=== PATIENT | male | born 1955 | race Caucasian/White ===

== ENCOUNTER → 2017-08-28 08:44 | Outpatient (CLI) | payer OTHER, SELFPAY ==
--- NOTE | 2017-08-28 08:51 | DI.RAD.S_ITS ---
PROCEDURE: XR SHOULDER LT MIN 2V INDICATIONS: RIGHT AND LEFT SHOULDER PAIN TECHNIQUE: 3 views of the shoulder were acquired. COMPARISON: None. FINDINGS: Bones: No fractures or dislocations but there is moderately severe degenerative osteoarthritis at the glenohumeral joint and moderate such degeneration at the acromioclavicular joint.. No suspicious bony lesions. Visualized ribs appear intact. Soft tissues: No suspicious soft tissue calcifications. IMPRESSION: Degenerative osteoarthritis of the left shoulder overall is moderately severe to severe and most pronounced at the glenohumeral articulation, but also present to lesser degree at the acromioclavicular joint. No trauma. Dictated by: Duncan Parry M.D. on 08/28/2017 at 10:38 Approved by: Duncan Parry M.D. on 08/28/2017 at 10:39
--- NOTE | 2017-08-28 08:51 | DI.RAD.S_ITS ---
PROCEDURE: XR SHOULDER RT MIN 2V INDICATIONS: RIGHT AND LEFT SHOULDER PAIN TECHNIQUE: 3 views of the shoulder were acquired. COMPARISON: [facility], CR, XR SHOULDER LT MIN 2V, 08/28/2017, 8:30. FINDINGS: Bones: No fractures or dislocations. The degenerative osteoarthritis at the glenohumeral joint is moderately severe to severe, and similar at the acromioclavicular joint. There is faint calcification in the subacromial/subdeltoid bursal space seen on the frontal projection above the humeral head. Calcific bursitis is the likely cause. No suspicious bony lesions. Visualized ribs appear intact. Soft tissues: No suspicious soft tissue calcifications. IMPRESSION: Moderately severe to severe degenerative osteoarthritis, involving the glenohumeral joint to a greater degree than the acromioclavicular joint. Calcific bursitis appears present above the humeral head within the subacromial/subdeltoid bursal space. Dictated by: Duncan Parry M.D. on 08/28/2017 at 10:39 Approved by: Duncan Parry M.D. on 08/28/2017 at 10:40
== END ==
PROVIDERS: Family Provider Internal Medicine; PCP Internal Medicine; Visit Provider Internal Medicine
DX: M19.011 Primary osteoarthritis, right shoulder (principal); M19.012 Primary osteoarthritis, left shoulder
CPT/HCPCS: 73030

== ENCOUNTER → 2018-01-01 10:39 | Outpatient (CLI) | payer OTHER, SELFPAY ==
[2018-01-01 11:52] LABS: Alanine Aminotransferase 33 IU/L (21-72); Aspartate Aminotransferase 31 IU/L (17-59); BUN Creatinine Ratio 16.4 (6-22); Blood Urea Nitrogen 18 mg/dL (9-20); Calcium 9.1 mg/dL (8.4-10.2); Carbon Dioxide 28 mmol/L (22-32); Chloride 102 mmol/L (98-107); Cholesterol 156 mg/dL (140-199); Estimated Glomerular Filt Rate > 60.0 mL/min (>60); Glucose 88 mg/dL (80-110); HDL Cholesterol 57 mg/dL (40-60); HEMOLYSIS < 15 (0-50); LDL Cholesterol Calculated 80 mg/dL (<100); Potassium 4.3 mmol/L (3.4-5.1); Sodium 141 mmol/L (137-145); Triglycerides 93 mg/dL (35-150)
[2018-01-01 12:19] LABS: TSH w/ Reflex to FT4 3.95 uIU/mL (0.47-4.68)
== END ==
PROVIDERS: PCP Internal Medicine; Visit Provider Internal Medicine
DX: R03.0 Elevated blood-pressure reading, without diagnosis of hypertension (principal); E78.00 Pure hypercholesterolemia, unspecified
CPT/HCPCS: 36415; 80048; 80061; 84443; 84450; 84460

== ENCOUNTER → 2018-06-04 16:47 | Outpatient (CLI) | payer OTHER, SELFPAY ==
--- NOTE | 2018-06-04 16:52 | DI.RAD.S_ITS ---
PROCEDURE: XR CLAVICLE RT INDICATIONS: fell while skiing-tender and bruising TECHNIQUE: 2 views of the clavicle were acquired. COMPARISON: [facility], CR, XR SHOULDER RT MIN 2V, 08/28/2017, 8:30. [facility], CR, XR SHOULDER RT MIN 2V, 06/04/2018, 16:53. FINDINGS: Bones: Distal right clavicle fracture is noted. Distal fracture fragment is displaced superiorly. Severe right shoulder osteoarthritic degenerative changes are noted. Soft tissues: No suspicious soft tissue calcifications. IMPRESSION: Distal right clavicle fracture. Dictated by: Haven Ceron MD, PhD on 06/04/2018 at 17:26 Approved by: Haven Ceron MD, PhD on 06/04/2018 at 17:27
--- NOTE | 2018-06-04 16:52 | DI.RAD.S_ITS ---
PROCEDURE: XR SHOULDER RT MIN 2V INDICATIONS: fell while skiing-tender and bruising TECHNIQUE: 3 views of the shoulder were acquired. COMPARISON: [facility], CR, XR SHOULDER RT MIN 2V, 08/28/2017, 8:30. FINDINGS: Bones: Distal right clavicle fracture noted. Severe right glenohumeral joint osteoarthritis with large humeral head marginal osteophyte noted. Soft tissues: No suspicious soft tissue calcifications. IMPRESSION: Distal right clavicle fracture. Dictated by: Haven Ceron MD, PhD on 06/04/2018 at 17:27 Approved by: Haven Ceron MD, PhD on 06/04/2018 at 17:27
== END ==
PROVIDERS: Family Provider Internal Medicine; PCP Internal Medicine; Visit Provider Physician Assistant
DX: S42.031A Displaced fracture of lateral end of right clavicle, initial encounter for closed fracture (principal); M25.511 Pain in right shoulder; W00.0XXA Fall on same level due to ice and snow, initial encounter; Y93.23 Activity, snow (alpine) (downhill) skiing, snowboarding, sledding, tobogganing and snow tubing
CPT/HCPCS: 73000; 73030

== ENCOUNTER 2019-08-18 20:22 | Emergency (ER) | payer OTHER, SELFPAY ==
[2019-08-18 20:28] VITALS: BP 166/91; PULSE 55; RESP 16; TEMP 36.5; O2SAT 99; BMI 27.9
--- NOTE | 2019-08-18 20:59 | ED_ITS ---
HPI - Extremity Injury (Upper) General Chief Complaint: Extremity Injury, Upper Stated Complaint: rt 4th finger injury Time Seen by Provider: 08/18/19 20:45 History of Present Illness HPI narrative: 63-year-old gentleman with a history of high blood pressure hypothyroid and high cholesterol presents after catching his 2nd finger on the right side in a boat winch. The fingernail is partly avulsed and he is looking for an opinion on how to best treat this. Other injuries: none Related Data Home Medications Medication Instructions Recorded Confirmed atorvastatin PO 06/04/18 06/04/18 levothyroxine PO 06/04/18 06/04/18 losartan PO 06/04/18 06/04/18 Previous Rx's Medication Instructions Recorded oxycodone-acetaminophen [Percocet] 1 tab PO Q8H PRN #10 tab 08/18/19 Allergies Allergy/AdvReac Type Severity Reaction Status Date / Time No Known Drug Allergies Allergy Verified 06/04/18 17:22 Review of Systems Constitutional Constitutional: Reports system reviewed and no additional complaints, except as docu Patient History Medical History Hyperlipidemia (Acute) Hypertension (Acute) Hypothyroidism (acquired) (Acute) Social History Smoking Status: Never smoker Smoking Status: Never smoker alcohol intake frequency: 0-2 drinks per day Substance Use Type: does not use Exam Narrative Exam Narrative: General: Alert appropriate in no acute distress Respiratory: Able to speak in full sentences, no obvious respiratory distress Neurologic: Grossly intact no obvious asymmetries or abnormalities Psych, appropriate insight and affect, cooperative Upper extremity: Right hand is examined. Second finger has a small laceration just distal to the 1st knuckle that is superficial and does not need any repair. The nail has been completely avulsed from the nail bed but is still attached distally. Patient was able to get about half of the nail under the cuticle flap and recede on the nail bed. Using an 18 gauge needle I was able to gently pressed the other half back into place. Minor amount of bleeding. Neuro vascularly intact Initial Vital Signs Initial Vital Signs: Vital Signs Temperature 97.7 F 08/18/19 20:28 Pulse Rate 55 L 08/18/19 20:28 Respiratory Rate 16 08/18/19 20:28 Blood Pressure 166/91 H 08/18/19 20:28 Pulse Oximetry 99 08/18/19 20:28 Course Orders Ordered: Discontinued Medications Bacitracin (Bacitracin) 5 applic TOP NOW ONE Stop: 08/18/19 20:51 Last Admin: 08/18/19 21:00 Dose: 5 applic Documented by: KASI Vital Signs Vital signs: Vital Signs - 8 hr 08/18/19 20:28 Temperature 97.7 F Pulse Rate 55 L Respiratory Rate 16 Blood Pressure 166/91 H Pulse Oximetry 99 MDM - Extremity Injury (Upper) MDM Narrative Medical decision making narrative: Avulsed base of nail. Able to get it back into the cuticle space and seated nicely. We shared decision making we opted to allow this to act as a biologic Band-Aid as the new nail grows in rather than remove the nail completely. Wounds are dressed and patient is safe for home discharge Discharge Plan Departure Patient Disposition: Home Clinical Impression: Avulsion of nail bed Instructions: DI for Nail Avulsion Injury Activity Restrictions/Additional Instructions: Thank you for coming in today You fairly jacque with this injury. There is no suggestion of a broken bone based on her clinical exam The small cut just by her knuckle will heal nicely without any further intervention You did pop the the closest edge of the nail(the nail bed) out. We were able to pop it back into the nail bed without any difficulty. It will continue to drain nicely. The new nail will grow in underneath and eventually the old nail will fall off. Do keep it covered as it begins to heal will act like a hangnail with things catching on it If he noticed signs or symptoms of infection please feel free to return happy to re-evaluate. Using 400 mg of ibuprofen (2 xvpz-tro-[id number] pills) and 1 Tylenol every 6 hours can be very helpful in controlling pain. For severe pain you can substitute 1 Percocet for the Tylenol. A prescription for this has been electronically transmitted to [facility] in [place] for you. Keeping the hand elevated will help so that it is not throbbing I wish you the best Prescriptions: New oxycodone-acetaminophen [Percocet] 5-325 mg tablet 1 tab PO Q8H PRN (Reason: pain) Qty: 10 RF: 0 No Action atorvastatin PO RF: 0 levothyroxine PO RF: 0 losartan PO RF: 0 Referrals: Hilary Leon MD [Primary Care Provider] -
[2019-08-18] MEDS: BACITRACIN OINT 0.9 GM PCKT 5 APPLIC TOP (21:00)
== END 2019-08-18 21:10 | disposition home or self-care (01) ==
PROVIDERS: Emergency Provider Emergency Medicine; Family Provider Internal Medicine; PCP Internal Medicine
DX: S61.300A Unspecified open wound of right index finger with damage to nail, initial encounter (principal); W23.0XXA Caught, crushed, jammed, or pinched between moving objects, initial encounter
CPT/HCPCS: 99281

== ENCOUNTER → 2019-12-31 09:21 | Outpatient (CLI) | payer OTHER, SELFPAY ==
[2019-12-31 11:03] LABS: Alanine Aminotransferase 40 IU/L (<50); Albumin 4.5 g/dL (3.5-5.0); Albumin Globulin Ratio 1.6 (1.0-2.8); Alkaline Phosphatase 66 U/L (38-126); Aspartate Aminotransferase 31 IU/L (17-59); BUN Creatinine Ratio 14.9 (6-22); Bilirubin Total 0.8 mg/dL (0.2-1.3); Blood Urea Nitrogen 15 mg/dL (9-20); Calcium 9.2 mg/dL (8.4-10.2); Carbon Dioxide 30 mmol/L (22-32); Chloride 103 mmol/L (98-107); Cholesterol 151 mg/dL (140-199); Estimated Glomerular Filt Rate > 60.0 mL/min (>60); Globulin 2.9 g/dL (1.7-4.1); Glucose 89 mg/dL (80-110); HDL Cholesterol 57 mg/dL (40-60); HEMOLYSIS < 15 (0-50); LDL Cholesterol Calculated 72 mg/dL (<100); Potassium 4.8 mmol/L (3.4-5.1); Sodium 141 mmol/L (137-145); Total Protein 7.4 g/dL (6.3-8.2); Triglycerides 109 mg/dL (35-150)
[2019-12-31 11:29] LABS: TSH w/ Reflex to FT4 5.37 uIU/mL (0.47-4.68)
[2019-12-31 11:58] LABS: Free T4, Direct Thyroxine 0.99 ng/dL (0.78-2.19)
[2020-01-01 07:08] LABS: PSA Free % 36.1 % (.); PSA, Total 4.1 ng/mL (0.0-4.0)
== END ==
PROVIDERS: Family Provider Internal Medicine; PCP Internal Medicine; Referring Provider Internal Medicine; Visit Provider Internal Medicine
DX: I10 Essential (primary) hypertension (principal); E78.00 Pure hypercholesterolemia, unspecified; Z00.00 Encounter for general adult medical examination without abnormal findings; E03.9 Hypothyroidism, unspecified
CPT/HCPCS: 36415; 80053; 80061; 84153; 84154; 84439; 84443

== ENCOUNTER → 2020-03-03 12:53 | Outpatient (CLI) | payer OTHER, SELFPAY ==
[2020-03-03 15:39] LABS: TSH w/ Reflex to FT4 0.59 uIU/mL (0.47-4.68)
== END ==
PROVIDERS: Family Provider Internal Medicine; PCP Internal Medicine; Referring Provider Internal Medicine; Visit Provider Internal Medicine
DX: E03.9 Hypothyroidism, unspecified (principal)
CPT/HCPCS: 36415; 84443

== ENCOUNTER 2020-03-07 14:15 | Outpatient (RCR) | payer OTHER, SELFPAY ==
--- NOTE | 2020-02-01 13:30 | PT.OIE ---
Current Diagnoses Benign paroxysmal vertigo, unspecified ear (02/01/20) Past Medical History (Last Reviewed 08/18/19 @ 21:01 by Clover Lyle MD) Hyperlipidemia (Acute) Hypertension (Acute) Hypothyroidism (acquired) (Acute) Visit Care Team Role Provider Type Hilary Leon MD Attending Provider Physician Family Provider Primary Care Provider Referring Provider Specialty: Internal Medicine Address: [address] [place] [address], [facility] Email: [email or web address] Physical Therapy Initial Evaluation PT-OP-A Visit Information Start: 02/01/20 08:28 Freq: Status: Active Protocol: Document 02/01/20 12:45 AMB (Rec: 02/04/20 09:31 AMB [email or web address]) Out-Patient Physical Therapy Visit Information Visit Information Visit Type Initial Evaluation Visit Start Time 12:45 Visit Stop Time 13:30 Total Visit Minutes 45 Visit Number 1 PT-OP-B Current Condition Start: 02/01/20 08:28 Freq: Status: Active Protocol: Document 02/01/20 12:47 AMB (Rec: 02/01/20 13:04 AMB [id number]) Current Condition History of Current Condition Current Complaints dizziness intermittent History of Current Condition Years ago, jumped back up after doing a burpee and then fell over. Last year episodes that come and go. Some concussion history but very distant, maybe a little bit of tinnitis. PT-OP-C Subjective Start: 02/01/20 08:28 Freq: Status: Active Protocol: Document 02/01/20 12:45 AMB (Rec: 02/04/20 09:31 AMB [email or web address]) Patient Questionnaires Dizziness Handicap Inventory DHI Score 12 DHI Functional Impairment 1 to 19% Impaired (Score 1-19) PT-OP-O Vestibular Start: 02/01/20 08:28 Freq: Status: Active Protocol: Document 02/01/20 12:45 AMB (Rec: 02/04/20 09:31 AMB [email or web address]) Vestibular Assessment Visual Testing Smooth Pursuits Horizontal WFL Smooth Pursuits Vertical WFL Saccades Horizontal WFL Saccades Vertical WFL Gaze Evoked Nystagmus With Fixation Negative Gaze Evoked Nystagmus Without Fixation Negative Thrust Head Negative Positional Testing Suzette-Hallpike Negative Left,Negative Right Rolling Test Negative Left,Negative Right Comments Vestibular Comments no nystagmus or sx with any testing PT-OP-T Assessment and Plan Start: 02/01/20 08:28 Freq: Status: Active Protocol: Document 02/01/20 12:45 AMB (Rec: 02/04/20 09:31 AMB [email or web address]) Physical Therapy Assessment Rehab Potential Rehabilitation Potential Fair Evaluation Complexity Number of Personal Factors/Comorbidities 0 Number of Body Systems Impaired 1-2 Clinical Presentation at Evaluation Stable Impairments Impairments Vestibular Goals One Impairment Adam manuever Short Term Goal (STG) Wale will perform a self Adam manuever correctly to reduce his dizziness symptoms. STG Duration 8 weeks Assessment Summary Assessment Wale attends physical therapy with what sounds like BPPV, but with his active lifestyle it has self resolved by the time of his physical therapy appointment, and we could not recreate his symptoms with testing. He was therefore instructed in a home Adam manuever and told to return if his symptoms return. Physical Therapy Plan Frequency and Duration Frequency of Treatment 2x/Week Duration of Treatment 8 weeks Plan of Care Start Date 02/01/20 Plan of Care End Date 03/28/20 Therapeutic Interventions Therapeutic Interventions Canalithic Repositioning,Home Exercise Program,Neuromuscular Re-education,Therapeutic Activities,Therapeutic Exercises Next Visit Focus/Plan Next Note Type Treatment Note Next Visit Plan If pt is symptomatic in next few weeks he will come in, otherwise we will teach him how to perform self Adam for when he becomes symptomatic
--- NOTE | 2020-02-01 13:30 | PT.OPPOC ---
Physical, Occupational & Speech Therapy At [facility] Current Diagnoses Benign paroxysmal vertigo, unspecified ear (02/01/20) Visit Care Team Role Provider Type Hilary Leon MD Attending Provider Physician Family Provider Primary Care Provider Referring Provider Specialty: Internal Medicine Address: [address] [place] [address], [id number] Email: [email or web address] Plan Of Care PT-OP-T Assessment and Plan Start: 02/01/20 08:28 Freq: Status: Active Protocol: Document 02/01/20 12:45 AMB (Rec: 02/04/20 09:31 AMB [email or web address]) Physical Therapy Assessment Rehab Potential Rehabilitation Potential Fair Evaluation Complexity Number of Personal Factors/Comorbidities 0 Number of Body Systems Impaired 1-2 Clinical Presentation at Evaluation Stable Impairments Impairments Vestibular Goals One Impairment Adam manuever Short Term Goal (STG) Wale will perform a self Adam manuever correctly to reduce his dizziness symptoms. STG Duration 8 weeks Assessment Summary Assessment Wale attends physical therapy with what sounds like BPPV, but with his active lifestyle it has self resolved by the time of his physical therapy appointment, and we could not recreate his symptoms with testing. He was therefore instructed in a home Adam manuever and told to return if his symptoms return. Physical Therapy Plan Frequency and Duration Frequency of Treatment 2x/Week Duration of Treatment 8 weeks Plan of Care Start Date 02/01/20 Plan of Care End Date 03/28/20 Therapeutic Interventions Therapeutic Interventions Canalithic Repositioning,Home Exercise Program,Neuromuscular Re-education,Therapeutic Activities,Therapeutic Exercises Next Visit Focus/Plan Next Note Type Treatment Note Next Visit Plan If pt is symptomatic in next few weeks he will come in, otherwise we will teach him how to perform self Adam for when he becomes symptomatic Plan of Care Dates Plan of Care Start Date 02/01/20 Plan of Care End Date 03/28/20 Electronically Signed by: Nori Price, PT 02/04/20 0653 Please Sign and Return: I have reviewed this Plan of Care and certify that the skilled therapy services above are required to meet the patient?s needs. Physician Signature Date Printed Name and Credentials Clinical Instructor Signature Printed Name and Credentials
--- NOTE | 2020-03-07 16:09 | PT.OTN ---
Current Diagnoses Benign paroxysmal vertigo, unspecified ear (03/07/20) Physical Therapy Treatment Note PT-OP-A Visit Information Start: 02/01/20 08:28 Freq: Status: Active Protocol: Document 03/07/20 14:15 AMB (Rec: 03/08/20 16:09 AMB [email or web address]) Out-Patient Physical Therapy Visit Information Visit Information Visit Type Treatment Note Visit Start Time 14:15 Visit Stop Time 15:00 Total Visit Minutes 45 Visit Number 2 PT-OP-B Current Condition Start: 02/01/20 08:28 Freq: Status: Active Protocol: Document 02/01/20 12:47 AMB (Rec: 02/01/20 13:04 AMB [id number]) Current Condition History of Current Condition Current Complaints dizziness intermittent History of Current Condition Years ago, jumped back up after doing a burpee and then fell over. Last year episodes that come and go. Some concussion history but very distant, maybe a little bit of tinnitis. PT-OP-C Subjective Start: 02/01/20 08:28 Freq: Status: Active Protocol: Document 03/07/20 14:15 AMB (Rec: 03/08/20 16:09 AMB [email or web address]) OP-PT Subjective Patient Comments Patient Comments Wale attends feeling like his symptoms have returned. He was doing burpees on Friday and felt like the whole room was spinning. PT-OP-O Vestibular Start: 02/01/20 08:28 Freq: Status: Active Protocol: Document 02/01/20 12:45 AMB (Rec: 02/04/20 09:31 AMB [email or web address]) Vestibular Assessment Visual Testing Smooth Pursuits Horizontal WFL Smooth Pursuits Vertical WFL Saccades Horizontal WFL Saccades Vertical WFL Gaze Evoked Nystagmus With Fixation Negative Gaze Evoked Nystagmus Without Fixation Negative Thrust Head Negative Positional Testing [place]-Hallpike Negative Left,Negative Right Rolling Test Negative Left,Negative Right Comments Vestibular Comments no nystagmus or sx with any testing PT-OP-Q Treatments Start: 02/01/20 08:28 Freq: Status: Active Protocol: Document 03/07/20 14:15 AMB (Rec: 03/08/20 16:09 AMB [email or web address]) Neuro Re-Education Treatment Other Activities 1 Comments supine roll and Suzette-hallpike all negative. Bhat Daroff to the left negative, mildy symptomatic to the right but no visible nystagmus in room light. Normal DVA. PT-OP-T Assessment and Plan Start: 02/01/20 08:28 Freq: Status: Active Protocol: Document 03/07/20 14:15 AMB (Rec: 03/08/20 16:09 AMB [email or web address]) Physical Therapy Assessment Assessment Summary Assessment Pt was not able to reproduce any visible nystagmus, but pt was mildy symptomatic with Bhat Daroff to the right. PT given this as HEP and told to return if sx do not subside or return. Physical Therapy Plan Next Visit Focus/Plan Next Visit Plan Consider concussion hx vs cervicogenic dizziness if pt's sx do not improve
--- NOTE | 2020-04-19 16:00 | PT.OPDS ---
Current Diagnoses Benign paroxysmal vertigo, unspecified ear (03/07/20) Visit Care Team Role Provider Type Hilary Leon MD Attending Provider Physician Family Provider Primary Care Provider Referring Provider Specialty: Internal Medicine Address: [address] [place] [address], [facility] Email: [email or web address] Visit Number Visit Number 2 Discharge Summary PT-OP-B Current Condition Start: 02/01/20 08:28 Freq: Status: Active Protocol: Document 02/01/20 12:47 AMB (Rec: 02/01/20 13:04 AMB [id number]) Current Condition History of Current Condition Current Complaints dizziness intermittent History of Current Condition Years ago, jumped back up after doing a burpee and then fell over. Last year episodes that come and go. Some concussion history but very distant, maybe a little bit of tinnitis. PT-OP-C Subjective Start: 02/01/20 08:28 Freq: Status: Active Protocol: Document 03/07/20 14:15 AMB (Rec: 03/08/20 16:09 AMB [email or web address]) OP-PT Subjective Patient Comments Patient Comments Wale attends feeling like his symptoms have returned. He was doing burpees on Friday and felt like the whole room was spinning. PT-OP-O Vestibular Start: 02/01/20 08:28 Freq: Status: Active Protocol: Document 02/01/20 12:45 AMB (Rec: 02/04/20 09:31 AMB [email or web address]) Vestibular Assessment Visual Testing Smooth Pursuits Horizontal WFL Smooth Pursuits Vertical WFL Saccades Horizontal WFL Saccades Vertical WFL Gaze Evoked Nystagmus With Fixation Negative Gaze Evoked Nystagmus Without Fixation Negative Thrust Head Negative Positional Testing [place]-Hallpike Negative Left,Negative Right Rolling Test Negative Left,Negative Right Comments Vestibular Comments no nystagmus or sx with any testing PT-OP-T Assessment and Plan Start: 02/01/20 08:28 Freq: Status: Active Protocol: Document 04/19/20 15:58 AMB (Rec: 04/19/20 16:00 AMB [email or web address]) Physical Therapy Assessment Assessment Summary Assessment PT was not able to reproduce Wale' sx. If he continues to have sx could consider further PT in the future vs ENT evaluation, but it is difficult due to the sporadic nature of his symptoms. Physical Therapy Plan Discharge Physical Therapy Discharge Reasons No Longer Attending PT
== END 2020-04-26 08:50 ==
LOC: PHYS 14:15
PROVIDERS: Family Provider Internal Medicine; PCP Internal Medicine; Referring Provider Internal Medicine; Visit Provider Internal Medicine
DX: H81.10 Benign paroxysmal vertigo, unspecified ear (principal)
CPT/HCPCS: 97112; 97161

== ENCOUNTER → 2020-05-24 08:36 | Outpatient (CLI) | payer OTHER, SELFPAY ==
[2020-05-24 10:36] LABS: COVID19 -Nasal RAPID Negative (Negative)
== END ==
PROVIDERS: Family Provider Internal Medicine; PCP Internal Medicine; Visit Provider Family Medicine Sleep Medicine
DX: Z20.822 Contact with and (suspected) exposure to COVID-19 (principal); G47.33 Obstructive sleep apnea (adult) (pediatric)
CPT/HCPCS: 87635; 95810

== ENCOUNTER → 2020-06-22 09:00 | Outpatient (CLI) | payer OTHER, SELFPAY ==
[2020-06-22 11:27] LABS: COVID19 -Nasal RAPID Negative (Negative)
== END ==
PROVIDERS: Family Provider Internal Medicine; PCP Internal Medicine; Visit Provider Family Medicine Sleep Medicine
DX: Z20.822 Contact with and (suspected) exposure to COVID-19 (principal); G47.33 Obstructive sleep apnea (adult) (pediatric); G47.19 Other hypersomnia; G47.00 Insomnia, unspecified; Z87.898 Personal history of other specified conditions
CPT/HCPCS: 87635; 95811

== ENCOUNTER → 2021-03-06 07:37 | Outpatient (CLI) | payer OTHER, SELFPAY ==
--- NOTE | 2021-03-06 07:41 | DI.MRI.S_ITS ---
PROCEDURE: MR SHOULDER RT W CON INDICATIONS: Primary osteoarthritis, right shoulder TECHNIQUE: After the administration of 12 mL of dilute intra-articular Gadolinium contrast, oblique coronal T1 and T2 spin echo with fat saturation, oblique sagittal T1 spin echo with and without fat saturation, oblique sagittal T2 fast spin echo with fat saturation, axial T1 spin echo with fat saturation through the shoulder. COMPARISON: [facility], CR, XR SHOULDER 2+ VIEWS RIGHT, 02/05/2021, 9:29. FINDINGS: Rotator cuff: Postsurgical changes are seen with scattered micro metallic susceptibility artifact in the region of the rotator cuff. A 3 mm osseous focus potentially loose bodies better seen on the comparison radiograph secondary to the associated micro metallic susceptibility artifact. Supraspinatus tendinopathy with thinned appearance suggestive of partial thickness articular and bursal sided tear versus post operative sequela. No full-thickness defect is seen. Infraspinatus tendinopathy is noted. Teres minor tendon appears intact. Subscapularis interstitial tearing with extension to the articular surface and possible pinpoint perforation to the bursal surface. This suggests a full-thickness slit-like tear without retraction. Recommend correlation to operative history however. No atrophy of the rotator cuff muscles although there is fatty infiltration of the infraspinatus. Bones and bursae: No bone marrow contusions or fractures. Severe hypertrophic acromioclavicular joint degeneration. Acromion demonstrates conventional anatomy, without an os acromiale. Lateral downsloping appearance of the acromion. Capsule and soft tissues: Labrum: Ill-defined circumferential tear of the labrum which is likely chronic. There is near full-thickness glenohumeral articular cartilage loss. Scattered degenerative subchondral sclerosis and spurring. Glenohumeral ligaments: Inferior and superior glenohumeral ligaments are intact. Biceps tendon: Severe intra-articular segment tendinopathy Rotator interval: Normal signal intensity. Coracohumeral ligament: Intact. IMPRESSION: Postsurgical changes involving the rotator cuff. No large or retracted full-thickness tear. Thinned appearance of the supraspinatus tendon with partial thickness articular and bursal sided defects could represent postsurgical sequela. A slit-like full-thickness defect of the subscapularis tendon could represent tear. Circumferential tear of the labrum. Advanced glenohumeral joint degeneration with near full-thickness articular cartilage loss. Long head biceps tendinopathy. Dictated by: Bk Cabral M.D. on 03/06/2021 at 10:18 Approved by: Bk Cabral M.D. on 03/06/2021 at 10:27
--- NOTE | 2021-03-06 07:41 | DI.RAD.S_ITS ---
PROCEDURE: FL SHOULDER INJECTION MR/CT RT INDICATIONS: Primary osteoarthritis, right shoulder COMPARISON: None. TECHNIQUE: The indications, alternatives, benefits, risks, and complications of the procedure were explained to the patient. Written informed consent was obtained and placed in the chart. The shoulder was examined fluoroscopically and a site for needle placement chosen for entry into the glenohumeral joint from an anterior approach. The skin was prepped and draped in a sterile fashion, and 1% lidocaine infiltrated from skin down to joint capsule. A spinal needle was inserted into the glenohumeral joint, and a small amount of iodinated contrast media injected to confirm intra-articular placement of the needle tip. This was followed by approximately 12 mL dilute solution of a gadolinium containing MR contrast agent. The needle was removed and a dressing was applied. The patient was given postprocedural instructions and sent to the MR suite for MR imaging. FINDINGS: A single fluoroscopic spot image demonstrates intra-articular location of injected iodinated contrast. IMPRESSION: Successful fluoroscopically guided administration of dilute Gadolinium solution into the shoulder joint for MR arthrogram. Dictated by: Haven Ceron MD, PhD on 03/06/2021 at 11:57 Approved by: Haven Ceron MD, PhD on 03/06/2021 at 11:58
--- NOTE | 2021-03-06 07:48 | DI.CT.S_ITS ---
PROCEDURE: CT UE RT WO CON INDICATIONS: Primary osteoarthritis, right shoulder TECHNIQUE: Noncontrast 1-1.5 mm thick sections acquired from the acromioclavicular joint to the inferior scapula, with coronal and sagittal reformatting. COMPARISON: [facility], CR, XR SHOULDER 2+ VIEWS RIGHT, 02/05/2021, 9:29. FINDINGS: Image quality: Excellent. Bones: No acute fracture. No focal osseous destruction identified. Lateral downsloping appearance of the acromion. There is a 3 mm chronic appearing ossicle at the superior aspect of the humeral head suggestive of loose body. Scattered degenerative subchondral sclerosis and spurring. Large bulky osteophyte formation is present in particular at the inferior aspect of the humeral head. Subchondral osteophyte also noted involving the humeral head on image 77/4. Moderate to severe glenohumeral joint space narrowing. Subchondral cystic changes are seen. Soft tissues: No definite muscle atrophy. No lymphadenopathy identified. The visualized lung appears unremarkable. IMPRESSION: Severe right shoulder joint degeneration as above with bulky osteophyte formation Lateral downsloping appearance of the acromion. 3 mm loose body as above. Dictated by: Bk Cabarl M.D. on 03/06/2021 at 8:30 Approved by: Bk Cabral M.D. on 03/06/2021 at 8:34
== END ==
PROVIDERS: Family Provider Internal Medicine; PCP Internal Medicine; Referring Provider Orthopaedic Surgery; Visit Provider Orthopaedic Surgery
DX: M19.011 Primary osteoarthritis, right shoulder (principal); S43.491A Other sprain of right shoulder joint, initial encounter
CPT/HCPCS: 23350; 73200; 73222; 77002

== ENCOUNTER → 2021-06-20 12:52 | Outpatient (CLI) | payer OTHER, SELFPAY | PROVIDERS: Family Provider Internal Medicine; PCP Internal Medicine; Visit Provider Physician Assistant | DX: L03.115 Cellulitis of right lower limb (principal) | CPT/HCPCS: 87070; 87075; 87077; 87147; 87186; 87205 ==

== ENCOUNTER → 2022-04-23 10:51 | Outpatient (CLI) | payer OTHER, SELFPAY ==
[2022-04-23 14:08] LABS: Influenza A - CEPHEID Flu A NEGATIVE (NEGATIVE); Influenza B - CEPHEID Flu B NEGATIVE (NEGATIVE); Respiratory Syncytial Virus Negative (Negative)
[2022-04-23 14:10] LABS: COVID-19 CEPHEID 4-PLEX PCR Negative (Negative)
== END ==
PROVIDERS: PCP Internal Medicine; Visit Provider Nurse Practitioner Family
DX: R05.1 Acute cough (principal); J02.9 Acute pharyngitis, unspecified
CPT/HCPCS: 0241U; 87070

== ENCOUNTER → 2023-01-07 09:50 | Outpatient (CLI) | payer MEDICARE, OTHER, SELFPAY ==
[2023-01-09 07:07] LABS: PSA Free % 32.8 % (.); PSA, Total 2.9 ng/mL (0.0-4.0)
== END ==
PROVIDERS: PCP Internal Medicine; Referring Provider Specialist; Visit Provider Specialist
DX: R97.20 Elevated prostate specific antigen [PSA] (principal)
CPT/HCPCS: 36415; 84153; 84154

== ENCOUNTER → 2023-04-18 08:51 | Outpatient (CLI) | payer MEDICARE, OTHER, SELFPAY ==
--- NOTE | 2023-04-18 08:55 | DI.RAD.S_ITS ---
PROCEDURE: XR KNEE RT 3V INDICATIONS: R knee swelling/heat/erythema at tibial tuberosity no injury TECHNIQUE: 3 views of the knee were acquired. COMPARISON: None. FINDINGS: Bones: No fractures or dislocations. No suspicious bony lesions. Soft tissues: Small joint effusion. No suspicious soft tissue calcifications. IMPRESSION: Small nonspecific joint effusion. Septic joint is not excluded by this exam. Dictated by: Haven Ceron MD, PhD on 04/18/2023 at 9:21 Approved by: Haven Ceron MD, PhD on 04/18/2023 at 9:21
== END ==
PROVIDERS: PCP Internal Medicine; Referring Provider Student in an Organized Health Care Education/Training Program; Visit Provider Student in an Organized Health Care Education/Training Program
DX: M25.561 Pain in right knee (principal); M25.461 Effusion, right knee
CPT/HCPCS: 73562

== ENCOUNTER → 2024-01-16 14:05 | Outpatient (CLI) | payer MEDICARE, OTHER, SELFPAY ==
[2024-01-16 17:42] LABS: Prostate Specific Antigen 5.16 ng/mL (0.10-4.00)
== END ==
PROVIDERS: PCP Internal Medicine; Referring Provider Urology; Visit Provider Urology
DX: N40.1 Benign prostatic hyperplasia with lower urinary tract symptoms (principal); R97.20 Elevated prostate specific antigen [PSA]
CPT/HCPCS: 84153

== ENCOUNTER → 2024-06-28 15:08 | Outpatient (CLI) | payer MEDICARE, OTHER, SELFPAY ==
--- NOTE | 2024-06-28 15:09 | DI.MRI.S_ITS ---
PROCEDURE: MR SHOULDER LT WO CON INDICATIONS: OSTEOARTHRITIS BILAT SHOULDERS TECHNIQUE: Noncontrast oblique coronal T2 fast spin echo with fat saturation, oblique sagittal T1 spin echo and T2 fast spin echo with fat saturation, axial T1 spin echo and T2 fast spin echo with fat saturation through the shoulder. COMPARISON: [facility], CT, CT SHOULDER LEFT WITHOUT CON, 06/28/2024, 15:16. [facility], CR, XR SHOULDER 2+ VIEWS BILATERAL, 02/20/2024, 9:59. FINDINGS: Image quality: Excellent. Rotator cuff: In the supraspinatus, there is high-grade, full width tear at the footprint. Mild tendinosis of the infraspinatus, without tear. The teres minor is unremarkable. Moderate tendinosis of the subscapularis, without tear. No muscle edema or fatty atrophy. Bones and bursae: Moderate degenerative changes acromioclavicular joint. Type 2 acromion. No os acromiale. Moderate subacromial/subdeltoid bursitis. Extensive subchondral cystic changes at the greater tuberosity, reactive. Extensive subchondral cystic changes in the superomedial humeral head, degenerative. No acute fracture. Extensive subchondral cystic changes with marrow edema of the glenoid, degenerative. Severe degenerative change of the glenohumeral joint with complete chondral denudation of the glenoid, and large area chondral denudation in the posterior aspect of the humeral head. Large osteophytosis of the humeral head. Capsule and soft tissues: Circumferential labral tear. No paralabral cyst. The extra-articular biceps tendon is unremarkable. Moderate tendinosis of the intra-articular biceps tendon. Small glenohumeral effusion multiple small intra-articular body in the posterior superior glenohumeral articulation (9:9). IMPRESSION: 1. Moderate degenerative changes of the acromioclavicular joint. Moderate subacromial/subdeltoid bursitis. 2. Severe degenerative change of the glenohumeral joint. 3. High-grade, full width tear of the supraspinatus. 4. Moderate tendinosis of the subscapularis, without tear. 5. Circumferential labral tear. 6. Moderate tendinosis of the intra-articular biceps tendon. 7. Multiple small intra-articular bodies. Dictated by: Lilly Garcia M.D. on 06/28/2024 at 17:31 Approved by: Lilly Garcia M.D. on 06/28/2024 at 17:45
--- NOTE | 2024-06-28 15:10 | DI.CT.S_ITS ---
PROCEDURE: CT SHOULDER LEFT WITHOUT CON INDICATIONS: OSTEOARTHRITIS BILAT SHOULDERS TECHNIQUE: Noncontrast 0.75 mm thick sections acquired from the acromioclavicular joint to the inferior scapula, with coronal and sagittal reformatting. COMPARISON: [facility], MR, MR SHOULDER LT WO CON, 06/28/2024, 15:43. FINDINGS: Image quality: Excellent. Bones: [id number]-[id number] acromioclavicular joint osteoarthritic changes are seen. Moderate to severe glenohumeral joint osteoarthritic changes also noted with joint space narrowing, subchondral sclerosis and subcortical cystic changes as well as prominent marginal osteophyte formation. No acute fracture or dislocation. No suspicious intraosseous lesions. The visualized left upper to mid ribs are intact. Soft tissues: There is no definite full-thickness rotator cuff tendon rupture. Sagittal images shows very mild supraspinatus muscle atrophy. No significant joint effusion or subacromial subdeltoid bursal fluid. No calcified intra-articular loose bodies. No abnormal soft tissue calcifications. No axillary lymphadenopathy by size criteria. Visualized left lung field is clear. IMPRESSION: 1. Moderate to severe left glenohumeral joint osteoarthritis and [id number] left acromioclavicular joint osteoarthritis. No acute left shoulder fracture or dislocation. No suspicious bony lesions. 2. No gross full-thickness rotator cuff tendon rupture. Very mild supraspinatus muscle atrophy. No abnormal soft tissue calcifications. No calcified intra-articular loose bodies. Dictated by: Pedrito Curran M.D. on 06/28/2024 at 16:14 Approved by: Pedrito Curran M.D. on 06/28/2024 at 16:16
== END ==
PROVIDERS: PCP Internal Medicine; Referring Provider Orthopaedic Surgery; Visit Provider Orthopaedic Surgery
DX: S43.492A Other sprain of left shoulder joint, initial encounter (principal); M75.122 Complete rotator cuff tear or rupture of left shoulder, not specified as traumatic; M19.012 Primary osteoarthritis, left shoulder; M19.011 Primary osteoarthritis, right shoulder; M75.52 Bursitis of left shoulder
CPT/HCPCS: 73200; 73221

== ENCOUNTER → 2024-07-20 11:28 | Outpatient (CLI) | payer MEDICARE, OTHER, SELFPAY ==
[2024-07-21 08:40] LABS: PSA Free % 33.1 % (.); PSA, Total 5.5 ng/mL (0.0-4.0)
== END ==
PROVIDERS: PCP Internal Medicine; Referring Provider Urology; Visit Provider Urology
DX: N40.1 Benign prostatic hyperplasia with lower urinary tract symptoms (principal); Z87.898 Personal history of other specified conditions
CPT/HCPCS: 36415; 84153; 84154

== ENCOUNTER → 2024-08-06 17:10 | Outpatient (CLI) | payer MEDICARE, OTHER, SELFPAY ==
--- NOTE | 2024-08-06 17:12 | DI.MRI.S_ITS ---
PROCEDURE: MR PELVIC PROSTATE PROTOCOL INDICATIONS: 68 y/o M w/ elevated PSA, please eval TECHNIQUE: Coronal HASTE, axial T1 FSE with fat saturation, 3-plane nonbreath-hold T2 FSE. After the administration of contrast, dynamic axial, delayed axial and coronal VIBE or 2-D FLASH with fat saturation through the pelvis. Diffusion weighted imaging and ADC was performed. COMPARISON: None. FINDINGS: Image quality: Diffusion weighted and dynamic contrast enhanced images are diagnostic. Prostate: Gland size is 5.6 x 4.7 x 4.9 cm; ellipsoid gland volume is 67 mL. Estimated PSA density is 0.0821 Transitional zone heterogenous nodules are present, either well encapsulated or mostly encapsulated, compatible with PI-RADS 1 or 2 likely BPH nodules. This is the predominant finding. The peripheral zone is compressed by the BPH nodules. Seminal vesicles appear clear. No extracapsular disease identified. There is median lobe hypertrophy impinging at the bladder neck. 0.7 x 0.8 cm lesion is seen in the right posterolateral peripheral zone mid gland (4/17). T2 score 3. DWI score 3. DCE negative. PI-RADS 3. Genitourinary system: Mildly thickened bladder wall with small trabeculations likely from chronic obstruction. Bowel and peritoneum: No small bowel obstruction or lower abdomen. No pathologic ascites Nodes and vessels: No aneurysmal artery identified. No enlarged lymph nodes by size criteria Soft tissues: Left fat containing inguinal hernia Bones: No aggressive appearing osseous abnormality. IMPRESSION: Prostatomegaly and BPH, which are the predominant abnormalities. A small PI-RADS 3 lesion is seen in the right posterolateral peripheral zone. No PI-RADS 4 or 5 lesion identified suspicious for clinically significant prostate adenocarcinoma. Seminal vesicles are clear. No extracapsular disease is seen. No enlarged lymph nodes by size criteria or aggressive appearing osseous abnormality in the pelvis. Dictated by: Arvind Armstrong M.D. on 08/09/2024 at 10:02 Approved by: Arvind Armstrong M.D. on 08/09/2024 at 10:07
== END ==
PROVIDERS: PCP Internal Medicine; Referring Provider Internal Medicine; Visit Provider Urology
DX: N40.0 Benign prostatic hyperplasia without lower urinary tract symptoms (principal); N42.9 Disorder of prostate, unspecified; K40.90 Unilateral inguinal hernia, without obstruction or gangrene, not specified as recurrent; R97.20 Elevated prostate specific antigen [PSA]
CPT/HCPCS: 72197; A9579

== ENCOUNTER → 2025-01-12 11:59 | Outpatient (CLI) | payer MEDICARE, OTHER, SELFPAY ==
[2025-01-14 07:12] LABS: PSA, Total 4.9 ng/mL (0.0-4.0)
== END ==
PROVIDERS: PCP Internal Medicine; Referring Provider Internal Medicine; Visit Provider Urology
DX: R97.20 Elevated prostate specific antigen [PSA] (principal)
CPT/HCPCS: 36415; 84153; 84154

== ENCOUNTER 2025-03-27 21:26 | Emergency (ER) | payer MEDICARE, OTHER, SELFPAY ==
--- OUTSIDE RECORDS SUMMARY | 2025-03-27 21:30 | XMS_ITS | Clinical Summary ---
Author Organization [facility] n Address [address] [place] [address] Phone Care Team Providers Care Front Line Supervisor Name Role Phone Hilary Leon MD Primary Care Provider [phone] Delbert Appiah Unavailable [phone] Feroz Hart Unavailable Allergies No known active allergies Medications ibuprofen (ADVIL) 200 MG tablet Take 1-2 tablets by mouth as needed. 1-2 x weekly Active Cholecalciferol (VITAMIN D) 50 MCG (1999) tablet Take 1 tablet. by mouth daily. Active MULTIPLE VITAMIN PO Take 1 tablet. by mouth daily. Active atorvastatin (Lipitor) 20 MG tabIndications:Pure hypercholesterolemia TAKE ONE-HALF (1/2) TABLET DAILY 45 tablet 3 04/12/19 25 Active levothyroxine (Synthroid) 125 MCG tabIndications:Hypothyr oidism, unspecified type TAKE 1 TABLET EVERY MORNING ON AN EMPTY STOMACH 100 tablet 1 09/30/19 25 Active losartan (Cozaar) 25 MG tabIndications:Essentia l hypertension TAKE 1 TABLET DAILY 100 tablet 3 02/09/20 25 Active mometasone 0.1 % creamIndications:Dermat itis Apply to rash on hand twice daily 15 g 09/08/19 25 025 Discontin ued(Notif y Pharmacy) Active Problems Problem Noted Date Diagnosed Date Body mass index 32.0-32.9, adult 03/14/2025 Elevated PSA 09/07/2024 Class 1 obesity due to exces s calories with serious comorbidity and body mass index (BMI) of 31.0 to 31.9 in adult 09/11/2023 Ventral hernia without obstruction or gangrene 1 05/14/2022 Lipoma 03/13/2023 Bilateral hearing loss 01/15/2021 Essential hypertension 01/15/2021 Hypothyroidism 01/15/2021 Obstructive sleep apnea syndrome 01/15/2021 Pure hypercholesterolemia 01/15/2021 Hematospermia 01/15/2021 Encounters Date Type Department Care Team Description 03/23/2025 Refill [facility] [address] [place] [id number] Hilary Leon MD Medication Refill (levothyroxine) 03/15/2025 Results Follow-Up [facility] [address] [place] [address] [id number] Hilary Leon MD 03/14/2025 1:00 PM PST Office Visit [facility] [address] [place] [address] 483[address] Hilary Leon MD Essential hypertension (Primary Dx); Pure hypercholesterolemia ; Hypothyroidism, unspecified type; Obesity (BMI 30.0-34.9); Body mass index 32.0-32.9, adult; Need for COVID-19 vaccine; Flu vaccine need; Cold right foot 03/01/2025 Risk Stratification [facility] [address] [place] [address] Pcp, Unknown 02/07/2025 Refill [facility] [address] [place] [phone] Hilary Leon MD Medication Refill (losartan ) 01/12/2025 Orders Only [facility] Provider, Generic 12/30/2024 Risk Stratification [facility] [address] [place] [address] Pcp, Unknown 12/30/2024 Risk Stratification [facility] [address] [place] [address] Pcp, Unknown 12/30/2024 Risk Stratification [facility] [address] [place] [address] Pcp, Unknown 12/30/2024 Risk Stratification [facility] [address] [place], [place] [phone] Pcp, Unknown 12/30/2024 Risk Stratification [facility] [address] [place] [phone] Pcp, Unknown from Last 3 Months Immunizations Immunization Administration Dates Next Due COVID-19 Comirnaty/Pfizer (S easonal) 30mcg/0.3ml (19+YRS) - NON-STATE 03/14/2025,03/09/2024,09/11/2023,2022 COVID-19 Pfizer 30 mcg/0.3 m L Primary series: MONOVALENT VACCINE ([place] capped vial with [place]-bordered label) 12+yrs 05/11/2021,07/05/2020 DTAP Vaccine 06/03/2008 Hep A, Unspecified 05/20/1997 INFLUENZA (FLUBLOK) 3V PF 0. 5mL (65+yrs) - NON-STATE 03/14/2025,03/09/2024 INFLUENZA (FLUCELVAX) QUAD P F (19+yrs) Non-state 03/06/2022 INFLUENZA (FLUZONE) HIGH-DOS E, QUADRIVALENT (65+ YRS) Non-state 03/13/2023 Influenza Unspecified (Historical) 03/06,03/23/2019,03/16/2014,2012,05/24/1997 Influenza Vaccine (Flu Clinic) 03/23/2019 Pneumococcal 20 (Prevnar 20) 03/13/2023 TDAP Vaccine 12/22/2018 Zoster Vaccine Recombinant Adjuvanated (Shingrix) 11/04/2017,08/26/2017 typhoid, unspecified 05/20/1997 Family History Medical History Relation Name Comments Diabetes Father Diabetes Mother Heart Attack/CAD Mother Relation Name Status Comments Brother Father Mother Sister Social History Tobacco Use Types Packs/Day Years Used Date Smoking Tobacco: Never Smokeless Tobacco: Former Quit: 1991 Tobacco Cessation:Counseling Given: Not Answered Alcohol Use Standard Drinks/Week Comments Yes 0 (1 standard drink = 0.6 oz pur e alcohol) Rarely Social Connection and Isolation Panel Answer Date Recorded In a typical week, how many times do you talk on the phone with family, friends, or neighbors? More than three times a week 12/08/2024 How often do you get togethe r with friends or relatives? Three times a week 12/08/2024 How often do you attend chur ch or latter day services? Never 12/08/2024 Do you belong to any clubs o r organizations such as buddhist groups, unions, fraternal or athletic groups, or school groups? No 12/08/2024 How often do you attend meet ings of the clubs or organizations you belong to? Never 12/08/2024 Are you , , di vorced, , never , or living with a partner? 12/08/2024 AUDIT-C Answer Date Recorded Q1: How often do you have a drink containing alc ohol? Monthly or less 12/09/2024 Q2: How many drinks containi ng alcohol do you have on a typical day when you are drinking? 3 or 4 12/09/2024 Q3: How often do you have si x or more drinks on one occasion? Less than monthly 12/09/2024 Overall Financial Resource Strain (CARDIA) Answe r Date Recorded How hard is it for you to pa y for the very basics like food, housing, medical care, and heating? Not hard at all 12/08/2024 Exercise Vital Sign Answer Date Recorde d On average, how many days pe r week do you engage in moderate to strenuous exercise (like a brisk walk)? 4 days 12/08/2024 On average, how many minutes do you engage in exercise at this level? 20 min 12/08/2024 Hunger Vital Sign Answer Date Recorded Within the past 12 months, y ou worried that your food would run out before you got the money to buy more. Never true 12/09/19 25 Within the past 12 months, t he food you bought just didn't last and you didn't have money to get more. Never true 12/08/2024 PRAPARE - Transportation Answer Date Re corded In the past 12 months, has l ack of transportation kept you from medical appointments or from getting medications? No 06/2024 In the past 12 months, has l ack of transportation kept you from meetings, work, or from getting things needed for daily living? No 12/08/2024 Housing Stability Vital Sign Answer William e Recorded In the last 12 months, was t here a time when you were not able to pay the mortgage or rent on time? No 12/08/2024 In the past 12 months, how m any times have you moved where you were living? 0 12/08/2024 At any time in the past 12 m [facility], were you homeless or living in a penitentiary (including now)? No 12/08/2024 Sex and Gender Information Value Date Recorded Sex Assigned at Not on file Legal Sex Male 5:47 PM PDT Gender Identity Not on file Sexual Orientation Not on file Last Filed Vital Signs Vital Sign Reading Time Taken Comments Blood Pressure 130/78 03/14/2025 1:01 PM PST Pulse 72 03/14/2025 1:01 PM PST Temperature 36.8 C (98.3 F) 03/13/2023 9:32 AM PST Respiratory Rate 18 03/14/2025 1:01 PM PST Oxygen Saturation - - Inhaled Oxygen Concentration - - Weight 98.8 kg (217 lb 12.8 oz) 03/14/2025 1:01 PM PST Height 175.3 cm (5' 9) 03/14/2025 1:01 PM PST Body Mass Index 32.16 03/14/2025 1:01 PM PST Plan of Treatment Upcoming Encounters Date Type Department Care Team (Late st Contact Info) Description 09/06/2025 9:30 AM PDT Office Visit [facility] [address] [place] [address] [phone] Hilary Leon MD [address] [place] [address] [phone] 12/13/2025 10:30 AM PDT Preventative Health [facility] [address] [place] [address] [phone] Hilary Leon MD [address] [place] [address] [phone] Health Maintenance Due Date Last Done Comments RSV Vaccine (1 - Risk 50-74 years 1-dose series) 10/08/2007 COVID-19 Vaccine ( season) 2025 03/14/2025, 03/09/2024, 09/11/2023, Additional history exists Annual Dementia Screening 12/09/2025 12/09/2024 Depression Screening 12/09/2025 12/09/2024, 09/07/2024, 09/11/2023, Additional history exists Fall Risk Assessment 12/09/2025 12/09/2024, 09/07/2024, 03/13/2023 Heart Health Assessment 12/09/2025 12/09/2024 Hypothyroidism: Annual TSH 03/14/202603/14, 03/09/2024, 03/13/2023, Additional history exists DTaP/Td/Tdap Vaccines (3 - Td or Tdap) 12/22/2028 12/22/2018, 06/03/2008 Colorectal Cancer Surveillance 03/16/2029 03/16/2019, 03/16/2019 Lipid Panel 03/14/2030 03/14/2025, 06/2024, 03/09/2024, Additional history exists Zoster Vaccine Completed 11/04/2017, 08/26/2017 Colonoscopy Discontinued 03/16/2019, 03/07 (Completed Outside of Organization), 03/16/2019 Hepatitis C Screening Completed 12/14/2021 Pneumococcal Vaccine age 50+ Completed 03/13/2023 PRAPARE Survey Completed 12/09/2024 Influenza Vaccine Completed 03/14/2025, , 03/13/2023, Additional history exists HPV Vaccines Aged Out No longer eligi ble based on patient's age to complete this topic Hepatitis B Vaccines Aged Out No long er eligible based on patient's age to complete this topic Procedures Procedure Name Priority Date/Time Associated Diagnosis Comments CHG ASSAY THYROID STIM HORMONE Routine 03/14/2025 1:34 PM PST Hypothyroidism, unspecified type CHG METABOLIC PANEL,COMPREHENSIV E Routine 03/14/2025 1:34 PM PST Pure hypercholesterolemia CHG LIPID PANEL Routine 03/14/2025 1:34 PM PST Pure hypercholesterolemia CHG VITAMIN B-12 Routine 03/14/2025 1:34 PM PST Cold right foot [facility] 01/12/2025 HEPATITIS C ANTIBODY Routine 12/14/2021 8:39 AM PDT Encounter for hepatitis C screening test for low risk patient EXTERNAL COLONOSCOPY 03/16/2019 12:00 AM PST from Last 3 Months or Most Recently Relevant to Health Maintenance Results * TSH REFLEX TO FT4 (03/14/2025 1:34 PM PST) TSH 2.83 0.40 - 4.00 uIU/mL [facility] 03/14/2025 1:34 PM PST 03/14/2025 7:36 PM PST Narrative [facility] - 03/14/2025 8:41 PM PST Preferred Name is HEIDE Non-fasting patient Hilary Leon MD LAB SEND OUTS Final Result [facility] [place] [address] * (ABNORMAL) LIPID PANEL (03/14/2025 1:34 PM PST) Triglycerides 275(H) 30 - 200 mg/dL [facility] Comment: Adult: < 150 Desirable 150-199 Borderline High 200-499 High >= 500 Very High Pediatric 2-17 years < 90 Desirable 90-129 Borderline High >= 130 High Cholesterol 170 150 - 240 mg/dL [facility] Comment: < 200 Desirable 200-239 Borderline High >= 240 High Risk HDL Cholesterol 56 mg/dL [facility] Comment: Male: >=60 Less than Average Risk of Coronary Disease 40-59 Average Risk of Coronary Disease <40 Increased Risk of Coronary Disease Female: >=60 Less than Average Risk of Coronary Disease 50-59 Average Risk of Coronary Disease <50 Increased Risk of Coronary Disease LDL Cholesterol 59 3 - 130 mg/dL [facility] Comment: < 100 Optimal 100-129 Near Optimal, Above Optimal 130-159 Borderline High 160-189 High >= 190 Very High Chol/HDL 3.0 0.0 - 5.0 [facility] LDL/HDL 1.1 0.0 - 3.0 [facility] 03/14/2025 1:34 PM PST 03/14/2025 7:36 PM PST Narrative [facility] - 03/14/2025 8:41 PM PST Preferred Name is HEIDE Non-fasting patient us Hilary Leon MD CHEMISTRY ORDERABLES Final Resu lt [facility] [address] [place] [phone] * (ABNORMAL) COMPREHENSIVE METABOLIC PANEL (03/14/2025 1:34 PM PST) Glucose 105(H) 65 - 99 mg/dL [facility] BUN 16 7 - 25 mg/dL [facility] Creatinine 1.11 0.70 - 1.30 mg/dL [facility] Sodium 143 135 - 148 mEq/L [facility] Potassium 4.3 3.5 - 5.3 mEq/L [facility] Chloride 105 98 - 107 mEq/L [facility] CO2 27 21 - 31 mEq/L [facility] Total Protein 7.5 6.0 - 8.0 g/dL [facility] Albumin 4.9(H) 3.4 - 4.8 g/dL [facility] Calcium 9.5 8.7 - 10.4 mg/dL [facility] AST (SGOT) 21 13 - 39 U/L [facility] Alkaline Phosphatase 71 34 - 104 U/L [facility] Bilirubin Total 0.4 0.2 - 1.3 mg/dL [facility] ALT (SGPT) 29 7 - 52 U/L [facility] eGFR 73 >=60 mL/min /1.73m Squared [facility] Comment: eGFR is calculated using the 2020 CKD-EPI equation, as recommended by the National [employer]-[place] [employer] of Nephrology Task Force. Compared to previously used equations for eGFR, the 2020 CKD-EPI equation may overestimate eGFR in non-black patients and underestimate eGFR in black patients. Consider further workup and/or Nephrology referral for eGFR consistently less than 45 mL/min/1.73m2 on two or more measurements. 03/14/2025 1:34 PM PST 03/14/2025 7:36 PM PST Narrative [facility] - 03/14/2025 8:41 PM PST Preferred Name is HEIDE Non-fasting patient Hilary Leon MD CHEMISTRY ORDERABLES Final Resu lt Performing Organization Address City/[facility]/ZIP Co de Phone Number [facility] [address] [address] * VITAMIN B12 (LAB) (03/14/2025 1:34 PM PST) Vitamin B12 377 180 - 900 pg/mL [facility] 03/14/2025 1:34 PM PST 03/14/2025 7:36 PM PST Narrative [facility] - 03/14/2025 8:41 PM PST Preferred Name is HEIDE Non-fasting patient us Hilary Leon MD CHEMISTRY ORDERABLES Final Resu lt Performing Organization Address [facility] Co de Phone Number [facility] [address] [address] * SCAN LAB (01/12/2025) 01/12/2025 Generic Provider [facility] Final Result * HEPATITIS C REFLEX TO HCV PCR (12/14/2021 8:39 AM PDT) Hepatitis C Antibody Nonreactive [facility] Hepatitis C Signal to cut off 0.05 [facility] 12/14/2021 8:39 AM PDT 12/14/2021 5:55 PM PDT Narrative [facility] - 12/19/2021 9:20 AM PDT Preferred Name is HEIDE Allan Hilary Leon MD CHEMISTRY ORDERABLES Final Resu lt [facility] [address] [place] [address] * EXTERNAL COLONOSCOPY (03/16/2019 12:00 AM PST) 03/16/2019 us Outside Doctor EXTERNAL PROCEDURE ORDERABLES Final Result from Last 3 Months or Most Recently Relevant to Health Maintenance Insurance [facility] MEDICARE Care Teams Front Line Supervisor Relationship Specialty Start Date End Date Hilary Leon MD [address] [place] [phone] PCP - General Internal Medicine 10/06/20 Delbert Appiah [address] [phone] Specialist Orthopedic 12/09/24 Feroz Hart [address] [place] [id number] Specialist Urology 12/09/24
[2025-03-27 21:32] VITALS: BP 177/99; PULSE 55; RESP 14; TEMP 36.8; O2SAT 97; BMI 29.4
--- NOTE | 2025-03-27 21:32 | EKG_ITS ---
[place] [id number] [address] [place] [id number] Test Date: 2025-03-27 Pat Name: Delbert Minor Department: [facility] Room: Gender: Male Clothing Room Supervisor: YONATHAN : 1955 Requested By: Order Number: [id number] Reading MD: Chester Wolfe MD Measurements Intervals [place] Rate: 53 P: -11 WI: 176 QRS: 1 QRSD: 90 T: 5 QT: 396 QTc: 371 Interpretive Statements Sinus bradycardia Electronically Signed On 03-29-2025 7:39:49 PST by Chester Wolfe MD
--- NOTE | 2025-03-27 21:39 | DI.RAD.S_ITS ---
PROCEDURE: XR CHEST 1V INDICATIONS: Chest Pain TECHNIQUE: One view of the chest was acquired. COMPARISON: None. FINDINGS AND IMPRESSION: No airspace consolidation or pleural effusions. Low lung volumes. Degenerative osseous changes and left shoulder arthroplasty. Normal heart size. Dictated by: Arvind Armstrong M.D. on 03/27/2025 at 21:55 Approved by: Arvind Armstrong M.D. on 03/27/2025 at 21:56
[2025-03-27] MEDS: ASPIRIN 81 MG CHEW TAB 324 MG PO (21:42)
[2025-03-27 22:06] LABS: Add Manual Diff / Slide Review NO; Hematocrit 43.2 % (41-53); Hemoglobin 14.9 g/dL (13.5-17.5); Lymphocytes Absolute Auto 2100 /uL (1100-4500); Mean Corpuscular HGB Conc 34.4 % (30-36); Mean Corpuscular Hemoglobin 30.7 PG (26-34); Mean Corpuscular Volume 89.3 fL (80-100); Platelet Count 281 X10^3/uL (150-400)
[2025-03-27 22:17] LABS: INR 0.9 (0.9-1.3); Prothrombin Time 10.5 SECONDS (9.4-12.5)
[2025-03-27 22:20] LABS: PTT Partial Thromboplastin Tim 26 SECONDS (25.1-36.5)
[2025-03-27 22:22] LABS: Alanine Aminotransferase 46 IU/L (<50); Albumin 4.8 g/dL (3.5-5.0); Albumin Globulin Ratio 1.5 (1.0-2.8); Alkaline Phosphatase 79 U/L (38-126); Blood Urea Nitrogen 19 mg/dL (9-20); Calcium 9.4 mg/dL (8.4-10.2); Carbon Dioxide 24 mmol/L (22-32); Chloride 105 mmol/L (98-107); Creatine Kinase 63 U/L (55-170); Estimated Glomerular Filt Rate > 60 mL/min (>60); Globulin 3.2 g/dL (1.7-4.1); Glucose 104 mg/dL (70-99); HEMOLYSIS < 15 (0-50); Lipase 84 U/L (23-300); Magnesium 1.9 mg/dL (1.6-2.3); Potassium 4.2 mmol/L (3.4-5.1); Sodium 139 mmol/L (137-145); Total Protein 8.0 g/dL (6.3-8.2)
[2025-03-27 22:34] LABS: NT-proBNP (BNP-Adult 18+) 26 pg/mL (<125); Troponin I < 0.012 ng/mL (0.01-0.034)
--- NOTE | 2025-03-27 22:49 | ED_ITS ---
HPI - Chest Pain General Chief Complaint: Chest Pain Stated Complaint: Chest px / 2hrs Time Seen by Provider: 03/27/25 21:57 Source: patient Mode of arrival: Ambulatory Limitations: no limitations History of Present Illness HPI narrative: 69-year-old male who was coming into his home after a trip and started feeling pain in the center part of his chest radiating to his back. He initially thought it was reflux and so took some Tums and Pepto-Bismol which helped a little bit but the pain continued prompting him to come into the ER for evaluation. Here in the ED upon initial evaluation in triage, patient's pain has resolved. He was given a full dose of aspirin by the nurse prior to my evaluation. He does have a history of hypertension and hyperlipidemia. Currently the patient is asymptomatic. thirteen point review of systems negative. Related Data Home Medications ?Medication ?Instructions ?Recorded ?Confirmed atorvastatin 20 mg tablet mg PO 04/18/23 01/26/25 levothyroxine 125 mcg tablet 125 mcg PO DAILY 04/18/23 01/26/25 losartan 25 mg tablet 25 mg PO DAILY 04/18/2301/06 ibuprofen 600 mg tablet 600 mg PO Q8H PRN 01/26/25 1 Allergies Allergy/AdvReac Type Severity Reaction Status Date / Time No Known Drug Allergies Allergy Verified 07/22/24 13:02 Review of Systems Review of Systems ROS Unobtainable: All systems reviewed & are unremarkable except as noted in HPI and below Patient History Medical History History of elevated PSA Epididymal cyst BPH NOS w ur obs/LUTS Peyronie's disease Male circumcision Thyroid disease 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) Snoring Primary insomnia Obstructive sleep apnea, adult Hyperlipidemia Hypothyroidism (acquired) Hypertension Surgical History History of hernia repair Family History Father Loud snoring Sleep apnea Insomnia Obesity Hypertension Diabetes mellitus Heart disease Family/Other Hypertension Mother Hyperlipidemia Thyroid disorder Social History marital status: number of children: 1 Smoking Status: Former smoker Type(s) of exercise: other frequency: 3-4 times per week Smoking Status: Former smoker alcohol intake frequency: 0-2 drinks per day Exam Narrative Exam Narrative: General: Patient appears to be in no acute distress, acting appropriately Head: normocephalic, atraumatic, HEENT: Pupils equal round reactive, eyes tracking well, neck supple, no JVD Heart: regular rate and rhythm, no murmurs, rubs, or gallops heard Lungs: clear to auscultation, no adventitious sounds Abdomen: soft , nontender, nondistended, positive bowel sounds Neurological: no focal neurological signs, moving all extremities well, alert and oriented x3, Psych: good judgment ,good insight, mood is normal. Initial Vital Signs Initial Vital Signs: Vital Signs Temperature 98.3 F 03/27/25 21:32 Pulse Rate 55 L 03/27/25 21:32 Respiratory Rate 14 03/27/25 21:32 Blood Pressure 177/99 H 03/27/25 21:32 Pulse Oximetry 97 03/27/25 21:32 Oxygen Delivery Method Room Air 03/27/25 21:32 Scores HEART Score Heart Score history: Slightly Suspicious Heart Score EKG: Normal Heart Score Age: > or = 65 years old Heart Score risk factors: 1-2 risk factors Heart Score troponin: < or = to normal limit Heart Score Total: 3 Course Orders Ordered: ED Orders 03/27/25 21:32 EKG-12 Lead Stat 03/27/25 21:39 XR chest 1V Stat 03/27/25 21:58 Complete Blood Count AUTO DIFF Stat Comprehensive Metabolic Panel Stat Lipase Stat Magnesium Stat NT-proBNP (BNP-Adult 18+) Stat PTT Partial Thromboplastin Kev Stat Prothrombin Time INR Stat Troponin & CK Cardiac Panel Stat 03/28/25 00:06 Troponin I Stat Discontinued Medications Aspirin (Aspirin 81 Mg Chew Tab) 324 mg PO NOW ONE Stop: 03/27/25 21:40 Last Admin: 03/27/25 21:42 Dose: 324 mg Documented By: ANNETTE Vital Signs Vital signs: Vital Signs - 8 hr 03/27/25 21:32 03/28/25 00:08 03/28/25 01:12 Temperature 98.3 F Pulse Rate 55 L 49 L 53 L Respiratory Rate 14 14 16 Blood Pressure 177/99 H 171/98 H 162/89 H Pulse Oximetry 97 99 97 Oxygen Delivery Method Room Air Room Air Room Air MDM - Chest Pain Lab Data 03/27/25 21:58 03/27/25 21:58 Labs: Lab Results 03/27/25 03/28/25 Range/Units 21:58 00:06 WBC 7.4 (4.5-11.0) X10^3/uL RBC 4.84 (4.5-5.9) X10^6/uL Hgb 14.9 (13.5-17.5) g/dL Hct 43.2 (41-53) % MCV 89.3 (80-100) fL MCH 30.7 (26-34) PG MCHC 34.4 (30-36) % RDW 13.2 (11.6-14.8) % Plt Count 281 (150-400) X10^3/uL Neut % (Auto) 54.0 (50-75) % Lymph % (Auto) 28.5 (25-40) % Dare % (Auto) 10.7 (3-14) % Eos % (Auto) 6.3 H (2-4) % Baso % (Auto) 0.5 (0-2) % Neut # (Auto) 4000 (5683-3062) /uL Lymph # (Auto) 2100 (3691-6977) /uL Dare # (Auto) 800 (0-900) /uL Eos # (Auto) 500 H (0-450) /uL Baso # (Auto) 0 (0-100) /uL PT 10.5 (9.4-12.5) SECONDS INR 0.9 (0.9-1.3) APTT 26 (25.1-36.5) SECONDS Sodium 139 (137-145) mmol/L Potassium 4.2 (3.4-5.1) mmol/L Chloride 105 (98-107) mmol/L Carbon Dioxide 24 (22-32) mmol/L BUN 19 (9-20) mg/dL Creatinine 0.99 (0.66-1.25) mg/dL Estimated GFR > 60 (>60) mL/min BUN/Creatinine Ratio 19.2 (6-22) Glucose 104 H (70-99) mg/dL Calcium 9.4 (8.4-10.2) mg/dL Magnesium 1.9 (1.6-2.3) mg/dL Total Bilirubin 0.4 (0.2-1.3) mg/dL AST 35 (17-59) IU/L ALT 46 (<50) IU/L Alkaline Phosphatase 79 (38-126) U/L Total Creatine Kinase 63 (55-170) U/L Troponin I < 0.012 < 0.012 (0.01-0.034) ng/mL NT-Pro-B Natriuret Pep 26 (<125) pg/mL Total Protein 8.0 (6.3-8.2) g/dL Albumin 4.8 (3.5-5.0) g/dL Globulin 3.2 (1.7-4.1) g/dL Albumin/Globulin Ratio 1.5 (1.0-2.8) Lipase 84 (23-300) U/L Imaging Data Chest x-ray: Radiologist's Impression: No airspace consolidation or pleural effusions. Low lung volumes. Degenerative osseous changes and left shoulder arthroplasty. Normal heart size. ECG Data Interpretation: EKG shows a normal axis, sinus bradycardia, 53 beats per minute, normal [place] intervals no STT wave changes. No previous EKG found for comparison. MDM Narrative Medical decision making narrative: 69-year-old male who came in for sudden mid chest pain that radiated to his back. His symptoms resolved early during his ED encounter and remained asymptomatic during his course here in the ED. Patient chest x-ray was normal as well as his labs. Patient's 2nd set of troponin was negative as well. Advised to follow up with Cardiology for further intervention if needed. Patient cardiac workup negative here in the ED. Follow up if symptoms worsen. Discharge Plan Departure Patient Disposition: Home Clinical Impression: Atypical chest pain Instructions: DI for Atypical Chest Pain Activity Restrictions/Additional Instructions: Cardiac workup negative today. Continue to stay on home medications. May need follow up with Cardiology after a referral made from PCP for a stress test to make sure that pain was not cardiac in origin. Come back sooner if having any new symptoms. Prescriptions: No Action atorvastatin 20 mg tablet PO losartan 25 mg tablet 25 mg PO DAILY levothyroxine 125 mcg tablet 125 mcg PO DAILY ibuprofen 600 mg tablet 600 mg PO Q8H PRN Referrals: Hilary Leon MD [Primary Care Provider, Internal Medicine] Stand Alone Forms: Patient Portal/API
[2025-03-28 00:08] VITALS: BP 171/98; PULSE 49; RESP 14; O2SAT 99
[2025-03-28 00:36] LABS: Troponin I < 0.012 ng/mL (0.01-0.034)
[2025-03-28 01:12] VITALS: BP 162/89; PULSE 53; RESP 16; O2SAT 97
== END 2025-03-28 01:13 | disposition home or self-care (01) ==
PROVIDERS: Emergency Provider Family Medicine; PCP Internal Medicine
DX: R07.89 Other chest pain (principal); M54.9 Dorsalgia, unspecified; I10 Essential (primary) hypertension
CPT/HCPCS: 36415; 71045; 80053; 82550; 83690; 83735; 83880; 84484; 85025; 85610; 85730; 93005; 93010; 99284